=== PATIENT | male | born 1965 | race Two or more races ===

== ENCOUNTER → 2017-12-06 | Outpatient (CLI) | payer MEDICAID ==
[~2017-12-06] VITALS: Ht 167.6 cm; Wt 93.0 kg
== END | disposition home or self-care (01) ==
LOC: Rad HDHVI 14:24
PROVIDERS: ATTEND Internal Medicine
DX: L80 Vitiligo (principal); R63.8 Other symptoms and signs concerning food and fluid intake; R07.89 Other chest pain
CPT/HCPCS: 78452; 93017; 96374; A9500

== ENCOUNTER → 2017-12-11 | Outpatient (CLI) | payer MEDICAID | END | disposition home or self-care (01) | LOC: Rad HDHVI 15:49 | PROVIDERS: ATTEND Internal Medicine | DX: I07.1 Rheumatic tricuspid insufficiency (principal); I70.0 Atherosclerosis of aorta; R07.89 Other chest pain; R63.8 Other symptoms and signs concerning food and fluid intake | CPT/HCPCS: 93306 ==